=== PATIENT | female | born 1965 ===

== ENCOUNTER → 2016-09-05 | Outpatient (CLI) | payer SELFPAY ==
[2016-09-05 19:22] LABS: HEMOGLOBIN 9.2 g/dl (12.0-16.0); MEAN CELL VOLUME 71.6 fl (81.0-99.0); MEAN CORPUSCULAR HGB CONC 27.9 g/dl (33.0-37.0); MEAN PLATELET VOLUME 9.7 fl (9.6-12.3); PLATELET COUNT AUTOMATED 377 10*3/uL (130-400); RED BLOOD COUNT 4.61 10*6/uL (4.10-5.10); WHITE BLOOD COUNT 7.6 10*3/uL (4.8-10.8)
[2016-09-05 19:48] LABS: BUN 7 mg/dl (7-24); C-REACTIVE PROTEIN 4.78 MG/DL (0-0.3); CARBON DIOXIDE 29 mmol/L (21-32); CHLORIDE 106 mmol/L (98-107); EST GLOM FILT AFRICAN AMERICAN > 60 ml/min; GLUCOSE 81 mg/dL (65-99); POTASSIUM 3.9 mmol/L (3.5-5.1); SODIUM 143 mmol/L (136-145)
[2016-09-05 19:59] LABS: EOSINOPHIL # 0.3 10*3/uL (0-0.4); EOSINOPHILS 4 % (1-4); LYMPHOCYTE # 1.1 10*3/uL (1.3-4.4); MONOCYTE # 0.4 10*3/uL (0.1-1.0); NEUTROPHIL # 5.8 10*3/uL (2.3-7.9); NEUTROPHILS 76 % (47-73); TOTAL CELLS COUNTED 100 #CELLS
[2016-09-05 20:00] LABS: HYPOCHROMIA SLIGHT; PLATELET SUFFICIENCY HIGH (NORMAL)
[2016-09-05 20:01] LABS: OVALOCYTES FEW
[2016-09-05 20:03] LABS: MICROCYTOSIS SLIGHT
[2016-09-05 20:04] LABS: BURR CELLS FEW; POLYCHROMASIA SLIGHT
== END | disposition home or self-care (01) ==
LOC: ZVN 18:47
PROVIDERS: Internal Medicine Infectious Disease
DX: A41.9 Sepsis, unspecified organism (principal)